=== PATIENT | female | born 1980 | race African-American/Black ===

== ENCOUNTER → 2020-08-05 | Outpatient (CLI) | payer BC ==
[2020-08-05] VITALS (13 sets, daily range): BP systolic 110–130; BP diastolic 69–81; PULSE 86–106
[~2020-08-05] VITALS: Ht 170.2 cm; Wt 94.5 kg
[~2020-08-05] MED LIST: ACETAMINOPHEN W1 TA6 PO; EC NAPROSYN500 MG PO; FORT1000TA PO; GLUCOPHAGE1000 MG PO; HUMALOG100 U/ML SC; IMITREX 25MG TA25 MG PO; INHALER; JARDIANCE10 PO; LANTUS100 U/ML SC; LEVEMIR FLEX100 U/ML SQ; LEVEMIR FLEXPEN SC; MOTRIN 600600 MG/TAB PO; NOVOLOG FLEX100 U/ML SC; NOVOLOG FLEX100 U/ML SQ; PERCOCET 325 MG1 TA2 PO; PHENERGAN 25 TA25 MG PO; PRENATAL 1 VITA1 TAB PO; TOPAMAX25 MG PO; TOPAMAX50 MG PO; VICTOZA6 MG/ML SC; WELLBUTRIN SR150 M1 PO; ZITHROMAX Z PA250 MG PO; ZOLOFT 100MG100 MG PO
[2020-08-05 09:46] LABS: INR 1.3 (0.8-3.0); PROTHROMBIN TIME 14.7 SECONDS (9.7-12.8)
--- NOTE | 2020-08-05 10:20 | NUR ---
Dr Alan informed of PT/INR, states is ok to proceed.
--- NOTE | 2020-08-05 10:36 | NUR ---
pt to ct per wheelchair. Pt positioned in supine position, monitors applied.
--- NOTE | 2020-08-05 10:53 | NUR ---
Specimen obtained and placed in formalin by Dr Alan. Specimen labeled.
--- NOTE | 2020-08-05 10:54 | NUR ---
gel foam slurry placed in liver by Dr Alan.
--- NOTE | 2020-08-05 11:08 | NUR ---
Dr Alan notified of pts PT/INR. states it is ok.
== END ==
LOC: COL.RAD 09:14
PROVIDERS: Internal Medicine Gastroenterology
DX: R94.5 Abnormal results of liver function studies (principal); E11.9 Type 2 diabetes mellitus without complications

== ENCOUNTER 2020-09-23 12:00 | Inpatient (IN) | payer BC ==
[2020-09-23] VITALS (289 sets, daily range): BP systolic 104–119; BP diastolic 58–68; PULSE 100–109; TEMP 97.8–99.6; O2SAT 76–100
[~2020-09-23] VITALS: Ht 167.6 cm; Wt 103.2 kg
[2020-09-23 12:54] LABS: BASO % 0.2 % (0.0-2.0); EOS # 0.1 (0.0-0.7); EOS % 0.9 % (0-4.0); GRAN # 4.4 (1.4-6.5); LYMPH # 2.8 (1.2-3.4); LYMPH % 34.1 % (20.0-51.0); MEAN CELL VOLUME 75 fl (80.0-100.0); MEAN CORPUSCULAR HGB CONC 31 g/dl (33.0-37.0); MEAN PLATELET VOLUME 10.8 fl (7.4-10.4); MONO # 0.8 (0.1-0.6); MONO % 10.4 % (1.7-9.3); PLATELET COUNT 252 K/mm3 (130-400); RED BLOOD COUNT 2.28 M/mm3 (4.10-5.30); REDCELL DISTRIBUTION WIDTH-CV 23.7 % (11.5-14.5)
[2020-09-23 12:55] LABS: INR 1.4 (0.8-3.0); PROTHROMBIN TIME 15.8 SECONDS (9.7-12.8)
[2020-09-23 12:58] LABS: MEAN CORPUSCULAR HEMOGLOBIN 23 pg (27.0-31.0)
[2020-09-23 12:59] LABS: ALBUMIN 2.5 gm/dL (3.5-5.0); BILIRUBIN,TOTAL 2.3 mg/dL (0.0-1.0); CALCIUM 7.5 mg/dL (8.4-10.2); CREATININE, serum 0.57 (0.52-1.25); HEMATOCRIT 17.1 % (37.0-47.0); HEMOGLOBIN 5.3 g/dl (12.5-16.0); POTASSIUM 3.8 mmol/L (3.4-5.0); TOTAL PROTEIN 7.1 gm/dL (6.4-8.2)
--- NOTE | 2020-09-23 19:27 | NUR ---
Report given to KARLI Rangel
[2020-09-23 21:56] LABS: HEMATOCRIT 21.1 % (37.0-47.0); HEMOGLOBIN 6.6 g/dl (12.5-16.0)
--- NOTE | 2020-09-23 22:03 | NUR ---
SILVIA Mercado notified of critical Hgb/Hct
[2020-09-24] VITALS (419 sets, daily range): BP systolic 103–138; BP diastolic 51–85; PULSE 82–108; TEMP 97.9–100; O2SAT 62–100
[2020-09-24 03:16] LABS: HEMATOCRIT 22.3 % (37.0-47.0)
--- NOTE | 2020-09-24 07:15 | NUR ---
RECEIVED REPORT FROM KARLI DE LA FUENTE. PT SLEEPING. VSS. CALL LIGHT WITHIN REACH.
[2020-09-24 08:05] LABS: ALBUMIN 2.1 gm/dL (3.5-5.0); BILIRUBIN,TOTAL 2.9 mg/dL (0.0-1.0); CALCIUM 6.9 mg/dL (8.4-10.2); CHOLESTEROL RISK RATIO 9.8; CREATININE, serum 0.64 (0.52-1.25); MAGNESIUM 1.7 mg/dL (1.6-2.3); POTASSIUM 4.1 mmol/L (3.4-5.0); TOTAL PROTEIN 6.1 gm/dL (6.4-8.2)
--- NOTE | 2020-09-24 08:10 | NUR ---
DR ROBERTSON AT BEDSIDE FOR ASSESSMENT. DISCUSSED WITH PT ABOUT DOING BEDSIDE SCOPING TODAY. PHYSICIAN STATES DO NOT GIVE BOWEL PREP. PHYSICIAN STATES WILL LET RN KNOW AFTER SPEAKING TO ENDO AND ANESTHESIA ABOUT TIME FOR SCOPES. PT MADE AWARE OF POC AND NPO UNTIL AFTER PROCEDURE. VERBALIZED UNDERSTANDING.
[2020-09-24 08:15] LABS: PROTHROMBIN TIME 15.5 SECONDS (9.7-12.8)
[2020-09-24 08:16] LABS: INR 1.4 (0.8-3.0)
[2020-09-24 08:32] LABS: BASO % 0.2 % (0.0-2.0); EOS # 0.1 (0.0-0.7); GRAN # 3.3 (1.4-6.5); GRAN % 53.4 % (42.2-75.2); LYMPH # 2.1 (1.2-3.4); LYMPH % 33.2 % (20.0-51.0); MEAN CORPUSCULAR HGB CONC 32 g/dl (33.0-37.0); MEAN PLATELET VOLUME 10.3 fl (7.4-10.4); MONO # 0.7 (0.1-0.6); MONO % 11.9 % (1.7-9.3); PLATELET COUNT 166 K/mm3 (130-400); RED BLOOD COUNT 2.74 M/mm3 (4.10-5.30); REDCELL DISTRIBUTION WIDTH-CV 21.1 % (11.5-14.5)
[2020-09-24 08:41] LABS: HEMATOCRIT 21.8 % (37.0-47.0); HEMOGLOBIN 6.9 g/dl (12.5-16.0); MEAN CELL VOLUME 80 fl (80.0-100.0); MEAN CORPUSCULAR HEMOGLOBIN 25 pg (27.0-31.0)
[2020-09-24 09:37] LABS: COLLECTION METHOD CLEAN CATCH
[2020-09-24 09:45] LABS: MUCOUS Present /lpf; PH 6 (5-8); SQUAMOUS EPITHELIAL 0-2 /hpf; URINE APPEARANCE Clear; URINE BACTERIA None Seen /hpf; URINE BILIRUBIN Negative (NEGATIVE); URINE BLOOD Negative (NEGATIVE); URINE COLOR Yellow; URINE GLUCOSE Negative (NEGATIVE); URINE KETONE Negative (NEGATIVE); URINE LEUKOCYTE ESTERASE Negative (NEGATIVE); URINE NITRATE Negative (NEGATIVE); URINE PROTEIN(semi-quant) Negative (NEGATIVE); URINE RBC 0-2 /hpf; URINE UROBILINOGEN >=4.0 mg/dL (NEGATIVE)
--- NOTE | 2020-09-24 09:48 | NUR ---
The patient is positive for COVID. SW contacted the patient to discuss discharge plan. The patient lives in [place] with her [id number] daughter. She states that her father, Kameron (ph#[phone]), is staying with her daughter while she is here. She reports independence with ADLs and does not have any DME. The patient's PCP is Dr. Barbara Ty and she receives her medications from [facility]. She reports no difficulties obtaining her meds. The patient does not have a DPOA-HC completed. She states that she is not and only have one child, which is [id number]. The patient's next of kin is her parents: Kameron and Bella. Bella lives in [place]. The patient plans to return home upon discharge. SW to follow as needed.
--- NOTE | 2020-09-24 14:02 | NUR ---
BEDSIDE EGD STARTED BY DR ROBERTSON, ANESTHESIA, AND 2 ENDO RNs. ENDED AT 1402. PT TOLERATED WELL. PT IS FULLY AWAKE NOW AND REQUESTING SOMETHING TO EAT. DR ROBERTSON STATES PT CAN HAVE CLEAR LIQUIDS AND IF TOLERATES OK CAN ADVANCE TO AHA DIET. JELLO AND ICE WATER PROVIDED TO PT AND UPDATED ON POC, VERBALIZED UNDERSTANDING.
--- NOTE | 2020-09-24 15:04 | NUR ---
SPOKE TO DR ZAVALA ABOUT WEGD, PHYSICIAN READS DR ROBERTSON NOTES. DR ZAVALA STATES WILL KEEP PT IMCU STATUS FOR ONE MORE NIGHT FOR CLOSER OBSERVATION. NEW ORDERS RECEIVED. PHYSICIAN STATES AGREES TO GET H&H REDRAW 2 HOURS AFTER 4TH PRBC IS FINISHED.
--- NOTE | 2020-09-24 16:25 | NUR ---
SPOKE TO DR ZAVALA AGAIN ABOUT CT AND PT'S STATUS. NEW ORDERS RECEIVED.
--- NOTE | 2020-09-24 17:34 | NUR ---
ATTEMPED TO EARL ROBERTSON OF CT RESULTS, LM TO CALL RN BACK.
--- NOTE | 2020-09-24 17:36 | NUR ---
ATTEMPTED TO CALL CT RESULTS TO DR ZAVALA. NO ANSWER.
--- NOTE | 2020-09-24 17:58 | NUR ---
ATTEMPTED TO CALL REPORT TO MEDICAL FLOORFOR PT TRANSFER TO 304. PT UPDATED ON POC, VERBALIZED UNDERSTANDING.
--- NOTE | 2020-09-24 18:10 | NUR ---
CORDINATED WITH JUAN RAMON, HIDE CLEANER ON MEDICAL FOR TRANSFER OF PT RIGHT AFTER SHIFT CHANGE. DIRECT LINE GIVEN TO HAND SCUDDER TO OBTAIN REPORT.
--- NOTE | 2020-09-24 18:40 | NUR ---
NOTIFIED DR ROBERTSON OF CT RESULTS AND PT TO TRANSFER TO 304. NO NEW ORDERS.
[2020-09-24 18:41] LABS: HEMATOCRIT 26.3 % (37.0-47.0); HEMOGLOBIN 8.4 g/dl (12.5-16.0)
--- NOTE | 2020-09-24 19:10 | NUR ---
REPORT CALLED TO KARLI BUI ON MEDICAL. PT TO TRANSFER VIA ON RA TO 304. ALL PERSONAL BELONGINGS SENT WITH PT. PT ON TELEMETRY.
[2020-09-25 04:36] VITALS: BP 104/54; PULSE 84; TEMP 98.2
--- NOTE | 2020-09-25 07:09 | NUR ---
Report received from KARLI Chavez. Pt resting in bed, reports nausea and abdominal cramping. Will bring pt tylenol and zofran. Continuing to monitor.
[2020-09-25 07:12] LABS: BASO % 0.3 % (0.0-2.0); EOS # 0.1 (0.0-0.7); EOS % 1.2 % (0-4.0); GRAN # 3.7 (1.4-6.5); GRAN % 60.9 % (42.2-75.2); LYMPH # 1.7 (1.2-3.4); LYMPH % 28.6 % (20.0-51.0); MEAN CELL VOLUME 82 fl (80.0-100.0); MEAN CORPUSCULAR HGB CONC 32 g/dl (33.0-37.0); MEAN PLATELET VOLUME 10.2 fl (7.4-10.4); MONO # 0.5 (0.1-0.6); MONO % 8.7 % (1.7-9.3); PLATELET COUNT 171 K/mm3 (130-400); RED BLOOD COUNT 3.14 M/mm3 (4.10-5.30); REDCELL DISTRIBUTION WIDTH-CV 21.5 % (11.5-14.5)
[2020-09-25 07:27] LABS: HEMATOCRIT 25.6 % (37.0-47.0); HEMOGLOBIN 8.1 g/dl (12.5-16.0); MEAN CORPUSCULAR HEMOGLOBIN 26 pg (27.0-31.0)
[2020-09-25 07:28] VITALS: BP 113/70; PULSE 81; TEMP 98.1
[2020-09-25 07:34] LABS: ALBUMIN 2.4 gm/dL (3.5-5.0); BILIRUBIN,TOTAL 2.8 mg/dL (0.0-1.0); CALCIUM 6.9 mg/dL (8.4-10.2); CREATININE, serum 0.66 (0.52-1.25); POTASSIUM 3.4 mmol/L (3.4-5.0); TOTAL PROTEIN 6.6 gm/dL (6.4-8.2)
--- NOTE | 2020-09-25 07:40 | NUR ---
Shift assessment complete. Reports abdominal cramping w/ pain 02/27 and nausea. Tylenol and zofran administered per orders. Reports no BMs since prior to hospitalization, believes last BM was Monday 2 in AM. Continues to feel as though she needs to have BM but is unable to do so. States the pain "is like a band across my abdomen that radiates upwards." Heart RRR. Lungs CTA. Denies other needs. Call light in reach.
[2020-09-25 12:11] VITALS: BP 106/63; PULSE 87; TEMP 98.1
[2020-09-25] MEDS ORDERED: PROTONIX 40MG T40 MG PO (12:38)
[2020-09-25] MEDS ORDERED: CARAFATE 1GM1 G PO (12:39)
[2020-09-25 13:28] LABS: HEMATOCRIT 26.3 % (37.0-47.0); HEMOGLOBIN 8.3 g/dl (12.5-16.0)
--- NOTE | 2020-09-25 14:33 | NUR ---
Discharge teaching discussed with pt and all questions answered. Discharge paperwork and all belongings with pt. INTs to right forearm and left AC discontinued w/o complications. Pt awaiting ride at this time.
--- NOTE | 2020-09-25 14:52 | NUR ---
Escorted pt down to ED entrance. Witnessed pt get into car with family member.
== END 2020-09-25 14:53 | disposition home or self-care (01) | DRG 377 ==
LOC: COL.ER 12:00 → ICU 13:16 → PEDS 09-24 20:43
PROVIDERS: Family Medicine; Hospitalist; ADMIT Internal Medicine
PROC: 0DB68ZX Excision of Stomach, Via Natural or Artificial Opening Endoscopic, Diagnostic (ICD-10-PCS; principal; 2020-09-23)
DX: K29.71 Gastritis, unspecified, with bleeding (principal); U07.1 COVID-19; D62 Acute posthemorrhagic anemia; K76.6 Portal hypertension; R00.0 Tachycardia, unspecified; E11.9 Type 2 diabetes mellitus without complications; F32.9 Major depressive disorder, single episode, unspecified; F41.9 Anxiety disorder, unspecified; K74.60 Unspecified cirrhosis of liver; R91.1 Solitary pulmonary nodule; Z79.84 Long term (current) use of oral hypoglycemic drugs; Z90.49 Acquired absence of other specified parts of digestive tract
CPT/HCPCS: 99223-AI; 99232-AI; 99239; C9113; J0696; J1815; J2354; J2405; J2704; J3010; J7030; J7050; J7120; P9016; Q9967

== ENCOUNTER → 2020-10-12 | Outpatient (CLI) | payer BC ==
[~2020-10-12] MED LIST changes: +CARAFATE 1GM1 G PO; +PROTONIX 40MG T40 MG PO
[2020-10-12 11:51] LABS: ALBUMIN 2.6 gm/dL (3.5-5.0); BILIRUBIN,TOTAL 2.8 mg/dL (0.0-1.0); CALCIUM 7.9 mg/dL (8.4-10.2); CREATININE, serum 0.85 (0.52-1.25); POTASSIUM 3.6 mmol/L (3.4-5.0); TOTAL PROTEIN 7.9 gm/dL (6.4-8.2)
== END ==
LOC: COL.LAB 10:44
PROVIDERS: Physician Assistant
DX: K74.60 Unspecified cirrhosis of liver (principal)

== ENCOUNTER → 2020-10-16 | Outpatient (CLI) | payer BC ==
[2020-10-16 09:51] LABS: ALBUMIN 2.7 gm/dL (3.5-5.0); BILIRUBIN,TOTAL 2.9 mg/dL (0.0-1.0); CALCIUM 7.9 mg/dL (8.4-10.2); CREATININE, serum 0.78 (0.52-1.25); POTASSIUM 3.6 mmol/L (3.4-5.0)
== END ==
LOC: COL.LAB 09:09
PROVIDERS: Physician Assistant
DX: K74.60 Unspecified cirrhosis of liver (principal); R94.5 Abnormal results of liver function studies; R74.8 Abnormal levels of other serum enzymes; R60.9 Edema, unspecified

== ENCOUNTER 2020-10-22 16:39 | Emergency (ER) | payer BC ==
[~2020-10-22] VITALS: Ht 167.6 cm; Wt 89.1 kg
[2020-10-22 17:18] LABS: BASO % 0.2 % (0.0-2.0); EOS # 0.1 (0.0-0.7); EOS % 1.1 % (0-4.0); GRAN # 3.3 (1.4-6.5); GRAN % 57.5 % (42.2-75.2); HEMATOCRIT 26.8 % (37.0-47.0); HEMOGLOBIN 8.8 g/dl (12.5-16.0); LYMPH # 1.6 (1.2-3.4); LYMPH % 28.4 % (20.0-51.0); MEAN CELL VOLUME 81 fl (80.0-100.0); MEAN CORPUSCULAR HEMOGLOBIN 27 pg (27.0-31.0); MEAN CORPUSCULAR HGB CONC 33 g/dl (33.0-37.0); MEAN PLATELET VOLUME 11.1 fl (7.4-10.4); MONO # 0.7 (0.1-0.6); MONO % 12.4 % (1.7-9.3); PLATELET COUNT 141 K/mm3 (130-400); RED BLOOD COUNT 3.31 M/mm3 (4.10-5.30); REDCELL DISTRIBUTION WIDTH-CV 20.3 % (11.5-14.5)
[2020-10-22 17:27] VITALS: TEMP 98.4
[2020-10-22 17:27] LABS: ALBUMIN 3.1 gm/dL (3.5-5.0); CALCIUM 8.2 mg/dL (8.4-10.2); CREATININE, serum 0.86 (0.52-1.25); POTASSIUM 3.3 mmol/L (3.4-5.0); TOTAL PROTEIN 8.7 gm/dL (6.4-8.2)
[2020-10-22 19:25] LABS: COLLECTION METHOD CLEAN CATCH
[2020-10-22 19:33] LABS: PH 7 (5-8); SQUAMOUS EPITHELIAL 0-2 /hpf; URINE APPEARANCE Clear; URINE BACTERIA None Seen /hpf; URINE BILIRUBIN Negative (NEGATIVE); URINE BLOOD Negative (NEGATIVE); URINE COLOR Yellow; URINE GLUCOSE 3+ (NEGATIVE); URINE KETONE Negative (NEGATIVE); URINE LEUKOCYTE ESTERASE Negative (NEGATIVE); URINE NITRATE Negative (NEGATIVE); URINE PROTEIN(semi-quant) Negative (NEGATIVE); URINE RBC 0-2 /hpf; URINE UROBILINOGEN >=4.0 mg/dL (NEGATIVE)
[2020-10-22 19:54] VITALS: BP 139/81; PULSE 99
== END 2020-10-22 20:00 | disposition home or self-care (01) ==
LOC: COL.ER 16:39
PROVIDERS: Nurse Practitioner
DX: R94.5 Abnormal results of liver function studies (principal); E11.65 Type 2 diabetes mellitus with hyperglycemia; E87.1 Hypo-osmolality and hyponatremia; E87.6 Hypokalemia; Z86.16 Personal history of COVID-19; Z90.49 Acquired absence of other specified parts of digestive tract; Z88.0 Allergy status to penicillin; Z88.2 Allergy status to sulfonamides; Z79.4 Long term (current) use of insulin
CPT/HCPCS: J1815; J7030

== ENCOUNTER → 2020-11-13 | Outpatient (CLI) | payer BC | LOC: COL.VAS 07:42 | DX: M79.604 Pain in right leg (principal); M79.605 Pain in left leg; R60.0 Localized edema ==

== ENCOUNTER 2021-05-20 11:01 | Emergency (ER) | payer BC ==
[~2021-05-20] VITALS: Ht 167.6 cm; Wt 83.2 kg
[2021-05-20 12:55] LABS: BASO % 0.3 % (0.0-2.0); EOS % 1.1 % (0-4.0); GRAN # 1.9 (1.4-6.5); GRAN % 51.1 % (42.2-75.2); LYMPH # 1.3 (1.2-3.4); LYMPH % 35.6 % (20.0-51.0); MEAN CELL VOLUME 75 fl (80.0-100.0); MEAN CORPUSCULAR HGB CONC 31 g/dl (33.0-37.0); MEAN PLATELET VOLUME 10.4 fl (7.4-10.4); MONO # 0.4 (0.1-0.6); MONO % 11.3 % (1.7-9.3); PLATELET COUNT 139 K/mm3 (130-400); RED BLOOD COUNT 2.76 M/mm3 (4.10-5.30); REDCELL DISTRIBUTION WIDTH-CV 14.8 % (11.5-14.5)
[2021-05-20 12:56] LABS: HEMATOCRIT 20.7 % (37.0-47.0); HEMOGLOBIN 6.4 g/dl (12.5-16.0); MEAN CORPUSCULAR HEMOGLOBIN 23 pg (27.0-31.0)
[2021-05-20 13:14] LABS: ALBUMIN 2.6 gm/dL (3.5-5.0); BILIRUBIN,TOTAL 1.5 mg/dL (0.2-1.2); CALCIUM 8.7 mg/dL (8.4-10.2); CREATININE, serum 1.2 mg/dL (0.57-1.11); POTASSIUM 4.1 mmol/L (3.5-4.5); TOTAL PROTEIN 7.2 gm/dL (6.2-8.1)
[2021-05-20 14:13] VITALS: BP 107/73; PULSE 71; TEMP 97.7
[2021-05-20 14:30] VITALS: BP 112/67; PULSE 72; TEMP 97.8
[2021-05-20 14:45] VITALS: BP 114/69; PULSE 74; TEMP 98
[2021-05-20 15:15] VITALS: BP 107/58; PULSE 78; TEMP 98.1
[2021-05-20 16:15] VITALS: BP 108/63; PULSE 79; TEMP 98
[2021-05-20 16:24] VITALS: BP 108/63; PULSE 79
== END 2021-05-20 16:26 | disposition home or self-care (01) ==
LOC: COL.ER 11:01
PROVIDERS: Personal Emergency Response Attendant
DX: E11.65 Type 2 diabetes mellitus with hyperglycemia (principal); E87.1 Hypo-osmolality and hyponatremia; R94.5 Abnormal results of liver function studies; Z87.19 Personal history of other diseases of the digestive system; Z79.4 Long term (current) use of insulin
CPT/HCPCS: J1815; J7030; P9016

== ENCOUNTER 2021-06-01 14:48 | Emergency (ER) | payer BC ==
[~2021-06-01] VITALS: Ht 167.6 cm; Wt 83.2 kg
[2021-06-01 15:44] LABS: BASO % 0.3 % (0.0-2.0); EOS # 0.1 K/mm3 (0.0-0.7); EOS % 1.7 % (0-4.0); GRAN # 4.5 K/mm3 (1.4-6.5); GRAN % 56.8 % (42.2-75.2); LYMPH # 2.3 K/mm3 (1.2-3.4); MEAN CELL VOLUME 78 fl (80.0-100.0); MEAN CORPUSCULAR HGB CONC 30 g/dl (33.0-37.0); MEAN PLATELET VOLUME 10.1 fl (7.4-10.4); MONO # 0.9 K/mm3 (0.1-0.6); MONO % 11.9 % (1.7-9.3); PLATELET COUNT 147 K/mm3 (130-400); RED BLOOD COUNT 2.87 M/mm3 (4.10-5.30); REDCELL DISTRIBUTION WIDTH-CV 16.3 % (11.5-14.5)
[2021-06-01 15:47] LABS: HEMATOCRIT 22.4 % (37.0-47.0); HEMOGLOBIN 6.7 g/dl (12.5-16.0); MEAN CORPUSCULAR HEMOGLOBIN 23 pg (27.0-31.0)
[2021-06-01 15:49] LABS: INR 1.1 (0.8-3.0); PROTHROMBIN TIME 12.5 SECONDS (9.7-12.8)
[2021-06-01 16:01] LABS: ALBUMIN 2.6 gm/dL (3.5-5.0); BILIRUBIN,TOTAL 1.2 mg/dL (0.2-1.2); CALCIUM 8.8 mg/dL (8.4-10.2); POTASSIUM 3.3 mmol/L (3.5-4.5); TOTAL PROTEIN 7.3 gm/dL (6.2-8.1)
[2021-06-01 17:15] VITALS: BP 105/58; PULSE 80; TEMP 98.2
[2021-06-01 17:30] VITALS: BP 96/58; PULSE 87; TEMP 98.2
[2021-06-01 18:00] VITALS: BP 105/62; PULSE 77; TEMP 97.7
[2021-06-01 19:17] VITALS: BP 112/67; PULSE 78; TEMP 98
[2021-06-01 19:30] VITALS: BP 112/67; PULSE 78
== END 2021-06-01 19:30 | disposition home or self-care (01) ==
LOC: COL.ER 14:48
PROVIDERS: Personal Emergency Response Attendant
DX: D64.9 Anemia, unspecified (principal); E11.65 Type 2 diabetes mellitus with hyperglycemia; E87.1 Hypo-osmolality and hyponatremia; R94.5 Abnormal results of liver function studies; Z87.19 Personal history of other diseases of the digestive system; Z79.4 Long term (current) use of insulin
CPT/HCPCS: P9016

== ENCOUNTER 2021-10-13 17:56 | Observation (INO) | payer SELFPAY ==
[~2021-10-13] VITALS: Ht 167.6 cm; Wt 87.4 kg
[2021-10-13 18:39] LABS: BASO % 0.2 % (0.0-2.0); EOS # 0.1 K/mm3 (0.0-0.7); EOS % 2.5 % (0.0-4.0); GRAN # 2.6 K/mm3 (1.4-6.5); GRAN % 45.6 % (42.2-75.2); LYMPH # 2.1 K/mm3 (1.2-3.4); LYMPH % 37.3 % (20.0-51.0); MEAN CELL VOLUME 67 fl (80.0-100.0); MEAN CORPUSCULAR HGB CONC 31 g/dl (33.0-37.0); MEAN PLATELET VOLUME 10.5 fl (7.4-10.4); MONO # 0.8 K/mm3 (0.1-0.6); MONO % 14.2 % (1.7-9.3); PLATELET COUNT 150 K/mm3 (130-400); REDCELL DISTRIBUTION WIDTH-CV 18.3 % (11.5-14.5)
[2021-10-13 18:41] LABS: HEMATOCRIT 27.4 % (37.0-47.0); HEMOGLOBIN 8.5 g/dl (12.5-16.0); MEAN CORPUSCULAR HEMOGLOBIN 21 pg (27-31)
[2021-10-13 18:42] LABS: COLLECTION METHOD CLEAN CATCH
[2021-10-13 18:58] LABS: ALANINE AMINOTRANSFERASE 12 U/L (0-55); ALKALINE PHOSPHATASE 198 U/L (40-150); ANION GAP 11 mmol/L (7-16); AST,SGOT 30 U/L (5-34); BILIRUBIN,TOTAL 2.4 mg/dL (0.2-1.2); BLOOD UREA NITROGEN 10 mg/dL (7-19); CALCIUM 8.8 mg/dL (8.4-10.2); CARBON DIOXIDE 20 mmol/L (22-29); CHLORIDE 96 mmol/L (98-107); CREATININE, serum 1.58 mg/dL (0.57-1.11); GLUCOSE 395 mg/dL (70-99); LIPASE 25 U/L (8-78); POTASSIUM 4.1 mmol/L (3.5-4.5); SODIUM 127 mmol/L (136-145); TOTAL PROTEIN 7.6 gm/dL (6.2-8.1)
[2021-10-13 19:12] LABS: MUCOUS Present (NOT PRESENT); PH 5 (5-8); URINE APPEARANCE Hazy (CLEAR/HAZY); URINE BACTERIA Rare /hpf (NONE SEEN); URINE BILIRUBIN Negative (NEGATIVE); URINE BLOOD Negative (NEGATIVE); URINE COLOR Yellow (YELLOW); URINE GLUCOSE 3+ (NEGATIVE); URINE KETONE Negative (NEGATIVE); URINE LEUKOCYTE ESTERASE Negative (NEGATIVE); URINE NITRATE Negative (NEGATIVE); URINE PROTEIN(semi-quant) Negative (NEGATIVE); URINE RBC 0-2 /hpf (0-2); URINE UROBILINOGEN Negative (NEGATIVE)
[2021-10-13 19:17] LABS: TSH w REFLEX 1.743 uIU/mL (0.350-4.940)
[2021-10-13 19:18] LABS: TROPONIN-I < 0.010 ng/mL (0.00-0.033)
[2021-10-13 21:18] LABS: INR 1.5 (0.8-3.0)
[2021-10-14] VITALS (7 sets, daily range): BP systolic 97–122; BP diastolic 50–70; PULSE 73–92; TEMP 97.4–98.5
--- NOTE | 2021-10-14 00:02 | NUR ---
Arrived to room 323 via wheelchair from ED.
[2021-10-14] MEDS ORDERED: ULTRAM 50MG TAB50 MG PO (00:17)
[2021-10-14] MEDS ORDERED: NEURONTIN100 MG/CAP PO (00:18)
[2021-10-14] MEDS ORDERED: ALDACTONE50 MG PO (00:20)
[2021-10-14] MEDS ORDERED: LASIX 40MG TABL40 MG PO (00:20)
[2021-10-14] MEDS ORDERED: INSULIN AS100 UNIT/3 SQ (00:21)
[2021-10-14] MEDS ORDERED: ENULOSE10 GM/151 PO (00:22)
[2021-10-14] MEDS ORDERED: CARAFATE 1GM1 G PO (00:23)
[2021-10-14 01:30] LABS: MAGNESIUM 1.8 mg/dL (1.6-2.6); PHOSPHOROUS 3.6 mg/dL (2.3-4.7)
--- NOTE | 2021-10-14 01:30 | NUR ---
Dilaudid given per dr order for bilat lower ext pain rated 10/10-described as constant throbbing.
--- NOTE | 2021-10-14 06:06 | NUR ---
Had an uneventful night. Received dilaudid x1 for bilat lower ext pain. NS@100ml/hr to right forearm 20g infusing without difficulty. Denied shortness of breath. C/O nausea x1 but stated medication was not needed. Tele reports SR. NC WNL. On room air. SCDs bilat. Call light in reach. Will monitor.
[2021-10-14 06:58] LABS: BASO % 0.3 % (0.0-2.0); EOS # 0.1 K/mm3 (0.0-0.7); EOS % 3.8 % (0.0-4.0); GRAN # 1.4 K/mm3 (1.4-6.5); GRAN % 38.6 % (42.2-75.2); LYMPH # 1.6 K/mm3 (1.2-3.4); LYMPH % 43.1 % (20.0-51.0); MEAN CELL VOLUME 67 fl (80.0-100.0); MEAN CORPUSCULAR HGB CONC 31 g/dl (33.0-37.0); MEAN PLATELET VOLUME 11.4 fl (7.4-10.4); MONO # 0.5 K/mm3 (0.1-0.6); MONO % 14.2 % (1.7-9.3); PLATELET COUNT 120 K/mm3 (130-400); RED BLOOD COUNT 3.48 M/mm3 (4.10-5.30); REDCELL DISTRIBUTION WIDTH-CV 18.2 % (11.5-14.5)
[2021-10-14 07:03] LABS: CALCIUM 8.2 mg/dL (8.4-10.2); CREATININE, serum 1.2 mg/dL (0.57-1.11); POTASSIUM 3.8 mmol/L (3.5-4.5)
[2021-10-14 07:04] LABS: HEMATOCRIT 23.4 % (37.0-47.0); HEMOGLOBIN 7.3 g/dl (12.5-16.0); MEAN CORPUSCULAR HEMOGLOBIN 21 pg (27-31)
--- NOTE | 2021-10-14 09:53 | NUR ---
ornamental metal worker helper met with patient to discuss discharge plan. Patient reports that she lives at home with her 8 year old daughter. Patients mother Bella ([phone]) is caring for her child while she is in the hospital. Patient is independent with her activities of daily living and does not utilize any DME to assist with mobility. Patient has no oxygen needs at home. PCP is Jayleen Pandya APRN and she utilizes [facility] for medications. Patient is currently between insurance policies and her new plan starts October 19. She does not currently have a DPOA-HC established. Education provided and patient's parents are her legal NOK. She was at one time, but is legally . Patient is planning on returning home once medically ready. Discharge plan: Home
--- NOTE | 2021-10-14 11:55 | NUR ---
Patient's PCP office faxed paperwork for financial assistance information for their office to the surgical unit for the patient to fill out while here. Paperwork provided to the patient and informed her we would be able to fax it back to PCP office.
--- NOTE | 2021-10-14 13:43 | NUR ---
First visit from the manager emergency. NO needs right now.
--- NOTE | 2021-10-14 18:41 | NUR ---
PT CALLED TO INFORM SHE HAD A BLOODY STOOL. BRIGHT RED BLOOD MIXED WITH STOOL NOTED. UNSURE OF AMOUNT. A HAT WAS PLACED IN TOLIET TO MEASURE ANY OTHER FUTURE MOVEMENTS. PT DENIES LIGHTHEADEDNESS OR NAUSEA AT THIS TIME. PT ALSO STATES SHE HAS A SUDDEN SEVERE HEADACHE PRIMARILY IN HER FOREHEAD. PT STATES SHE HAS A HX OF MIGRAINES BUT HAS NOT HAD ONE "IN A LONG TIME" HOSPITALIST NOTIFIED.
--- NOTE | 2021-10-14 19:15 | NUR ---
Bedside shift report received, assumed care for history card clerk. Assessment complete. A&Ox3. Denies shortness of breath. Still c/o headache-rating pain 9. Received topomax and tylenol at 1900. Instructed to wait a little longer to give medication time to work. Verbalizes understanding. States nausea is a little better compared to earlier. VS are currently stable. Has taken in a small amount of clear liquids. NC WNL. Right forearm 20g with NS@50mls/hr infusing without difficulty. TELE reports SR. Plan of care discussed for this shift to include meds/accuchecks/calling for questions/concerns. Verbalizes understanding/denies needs. Call light in reach. Will monitor.
--- NOTE | 2021-10-14 19:32 | NUR ---
PCT reporting patient is c/o a headache-rating pain 8/10. Received topomax and tylenol at 1900. Will re-evaluate in 30 minutes and contact provider if needed.
--- NOTE | 2021-10-14 20:00 | NUR ---
Resting eyes closed. No s/s of pain noted.
--- NOTE | 2021-10-14 20:45 | NUR ---
Called c/o headache/nausea. Rating pain 9/10 on pain scale. Spoke with hospitalist and new orders received for phenergan. Also states she used the bathroom and there is blood in the hat. Did not have any stool-small dime size spot of bright red blood on tissue in hat.
--- NOTE | 2021-10-14 23:48 | NUR ---
Reports headache is gone after receiving phenergan dose earlier. Denies nausea. Call light in reach. Will monitor.
[2021-10-15 03:33] VITALS: BP 100/51; PULSE 79; TEMP 97.8
[2021-10-15 07:00] LABS: EOS # 0.1 K/mm3 (0.0-0.7); GRAN # 1.4 K/mm3 (1.4-6.5); GRAN % 42.4 % (42.2-75.2); LYMPH # 1.4 K/mm3 (1.2-3.4); LYMPH % 42.1 % (20.0-51.0); MEAN CELL VOLUME 68 fl (80.0-100.0); MEAN CORPUSCULAR HGB CONC 31 g/dl (33.0-37.0); MEAN PLATELET VOLUME 10.2 fl (7.4-10.4); MONO # 0.4 K/mm3 (0.1-0.6); MONO % 12.2 % (1.7-9.3); PLATELET COUNT 130 K/mm3 (130-400); RED BLOOD COUNT 3.57 M/mm3 (4.10-5.30); REDCELL DISTRIBUTION WIDTH-CV 18.2 % (11.5-14.5)
[2021-10-15 07:28] VITALS: BP 110/54; PULSE 102; TEMP 98.2
[2021-10-15 07:31] LABS: HEMATOCRIT 24.3 % (37.0-47.0); HEMOGLOBIN 7.4 g/dl (12.5-16.0); MEAN CORPUSCULAR HEMOGLOBIN 21 pg (27-31)
[2021-10-15 07:32] LABS: ALBUMIN 2.7 gm/dL (3.5-5.0); BILIRUBIN,TOTAL 1.9 mg/dL (0.2-1.2); CALCIUM 8.2 mg/dL (8.4-10.2); CREATININE, serum 1.04 mg/dL (0.57-1.11); POTASSIUM 3.7 mmol/L (3.5-4.5); TOTAL PROTEIN 6.7 gm/dL (6.2-8.1)
[2021-10-15 11:18] VITALS: BP 111/64; PULSE 91; TEMP 98.1
[2021-10-15 15:52] VITALS: BP 102/59; PULSE 78; TEMP 98.1
--- NOTE | 2021-10-15 17:57 | NUR ---
NO BLOODY STOOLS THIS SHIFT, HGB UNCHANGED. PT CONTINUES TO TOLERATED CLEAR LIQUIDS, CT OF ABD DONE THIS SHIFT. PT STILL HAVING CRAMPING ABD PAIN BUT NOT SEVERE YESTERDAY. PT DENIES MIGRAINES THIS SHIFT. UP INDEPENDENT IN ROOM.
--- NOTE | 2021-10-15 18:32 | NUR ---
PT NOW HAVING STRONG HEADACHE, PHENERGRAN ORDER PLACED BY HOSPITALIST D/T MEDICATION HELPING WITH MIGRAINE LAST NIGHT
[2021-10-15 19:22] VITALS: BP 105/68; PULSE 84; TEMP 98.3
--- NOTE | 2021-10-15 21:27 | NUR ---
REPORT RECEIVED FROM DAY SHIFT. ASSUMED CARE. PATIENT AXOX3. PATIENT COMPLAINS OF PAIN IN ABDOMEN AND A HEADACHE RATING 10/10. PATIENT GIVEN PM MEDS ALONG WITH PHENERGAN. PATIENT DENIES ANY SOB. PATIENT RESTING IN BED WITH CALL LIGHT NEAR.
[2021-10-15 23:16] VITALS: BP 95/61; PULSE 80; TEMP 97.8
[2021-10-16 03:06] VITALS: BP 98/58; PULSE 87; TEMP 97.5
[2021-10-16 06:58] LABS: EOS # 0.1 K/mm3 (0.0-0.7); EOS % 3.6 % (0.0-4.0); GRAN # 1.5 K/mm3 (1.4-6.5); GRAN % 43.6 % (42.2-75.2); LYMPH # 1.3 K/mm3 (1.2-3.4); MEAN CELL VOLUME 70 fl (80.0-100.0); MEAN CORPUSCULAR HGB CONC 30 g/dl (33.0-37.0); MEAN PLATELET VOLUME 11.3 fl (7.4-10.4); MONO # 0.5 K/mm3 (0.1-0.6); MONO % 14.8 % (1.7-9.3); PLATELET COUNT 133 K/mm3 (130-400); RED BLOOD COUNT 3.33 M/mm3 (4.10-5.30); REDCELL DISTRIBUTION WIDTH-CV 18.3 % (11.5-14.5)
[2021-10-16 07:12] VITALS: BP 98/58; PULSE 86; TEMP 98.1
[2021-10-16 07:15] LABS: ALBUMIN 2.5 gm/dL (3.5-5.0); BILIRUBIN,TOTAL 1.5 mg/dL (0.2-1.2); CALCIUM 8.2 mg/dL (8.4-10.2); CREATININE, serum 0.96 mg/dL (0.57-1.11); POTASSIUM 3.8 mmol/L (3.5-4.5); TOTAL PROTEIN 6.3 gm/dL (6.2-8.1)
[2021-10-16 07:28] LABS: HEMATOCRIT 23.4 % (37.0-47.0); MEAN CORPUSCULAR HEMOGLOBIN 21 pg (27-31)
[2021-10-16] MEDS ORDERED: MIRALAX PA17 GM/Dose PO (09:12)
[2021-10-16] MEDS ORDERED: DULCOLAX S10 MG/SUPP RC (09:14)
[2021-10-16 11:19] VITALS: BP 104/60; PULSE 89; TEMP 98.5
[2021-10-16] MEDS ORDERED: PROMETHAZINE12.5 M5 PO (11:58)
[2021-10-16] MEDS ORDERED: ZOFRAN ODT4 MG PO (11:58)
--- NOTE | 2021-10-16 13:43 | NUR ---
PT MET CRITERIA FOR DISCHARGE, VSS. PAIN CONTROLLED. PT TOLERATING REGULAR DIET. IV REMOVED WITH OUT DIFFICULTY, CATHETER INTACT. DISCHARGE INSTRUCTIONS REVIEWED,PT VERBALIZED UNDERSTANDING. PT AWARE OF F/U APPTS TO MAKE AND OF PRESCRIPTIONS TO BRINE ROOM LABORER. PT DC TO HOME VIA WHEELCHAIR ACCOMPANIED BY EXCELSIOR PICKER.
[2021-10-16] MEDS ORDERED: FERRO-TIME325 MG PO (14:23)
== END 2021-10-16 14:13 | disposition home or self-care (01) ==
LOC: COL.ER 17:56 → SURG 22:17
PROVIDERS: Emergency Medicine; Nurse Practitioner Family; Physician Assistant; ADMIT Student in an Organized Health Care Education/Training Program
DX: K74.69 Other cirrhosis of liver (principal); K92.1 Melena; D50.9 Iron deficiency anemia, unspecified; N17.9 Acute kidney failure, unspecified; E87.1 Hypo-osmolality and hyponatremia; E87.8 Other disorders of electrolyte and fluid balance, not elsewhere classified; R74.02 Elevation of levels of lactic acid dehydrogenase [LDH]; E11.10 Type 2 diabetes mellitus with ketoacidosis without coma; E11.9 Type 2 diabetes mellitus without complications; R82.81 Pyuria; Z86.16 Personal history of COVID-19; Z87.19 Personal history of other diseases of the digestive system; Z90.49 Acquired absence of other specified parts of digestive tract; Z79.891 Long term (current) use of opiate analgesic; Z79.899 Other long term (current) drug therapy; Z79.4 Long term (current) use of insulin
CPT/HCPCS: 99232-AI; 99233-AI; 99239; C9113; G0378; J1170; J1815; J2405; J2550; J7030; Q9967

== ENCOUNTER 2021-12-17 13:13 | Emergency (ER) | payer BC ==
[~2021-12-17] VITALS: Ht 167.6 cm; Wt 94.5 kg
[~2021-12-17 13:13] MED LIST changes: +ALDACTONE50 MG PO; +DULCOLAX S10 MG/SUPP RC; +ENULOSE10 GM/151 PO; +FERRO-TIME325 MG PO; +INSULIN AS100 UNIT/3 SQ; +LASIX 40MG TABL40 MG PO; +MIRALAX PA17 GM/Dose PO; +NEURONTIN100 MG/CAP PO; +PROMETHAZINE12.5 M5 PO; +ULTRAM 50MG TAB50 MG PO; +ZOFRAN ODT4 MG PO
[2021-12-17 13:55] LABS: BASO % 0.2 % (0.0-2.0); EOS # 0.1 K/mm3 (0.0-0.7); GRAN # 2.2 K/mm3 (1.4-6.5); GRAN % 55.5 % (42.2-75.2); LYMPH # 1.3 K/mm3 (1.2-3.4); LYMPH % 31.2 % (20.0-51.0); MEAN CELL VOLUME 70 fl (80.0-100.0); MEAN CORPUSCULAR HGB CONC 30 g/dl (33.0-37.0); MEAN PLATELET VOLUME 10.5 fl (7.4-10.4); MONO # 0.4 K/mm3 (0.1-0.6); MONO % 10.9 % (1.7-9.3); PLATELET COUNT 139 K/mm3 (130-400); RED BLOOD COUNT 3.16 M/mm3 (4.10-5.30)
[2021-12-17 13:57] LABS: HEMOGLOBIN 6.6 g/dl (12.5-16.0); MEAN CORPUSCULAR HEMOGLOBIN 21 pg (27-31)
[2021-12-17 14:01] LABS: INR 1.3 (0.8-3.0)
[2021-12-17 14:09] LABS: ALBUMIN 2.8 gm/dL (3.5-5.0); BILIRUBIN,TOTAL 1.3 mg/dL (0.2-1.2); CALCIUM 8.2 mg/dL (8.4-10.2); CREATININE, serum 1.08 mg/dL (0.57-1.11); POTASSIUM 3.5 mmol/L (3.5-4.5); TOTAL PROTEIN 7.1 gm/dL (6.2-8.1)
[2021-12-17 14:50] LABS: COLLECTION METHOD CLEAN CATCH
[2021-12-17 15:07] LABS: PH 6 (5-8); SQUAMOUS EPITHELIAL 0-2 /hpf (0-10); URINE APPEARANCE Clear (CLEAR/HAZY); URINE BACTERIA Rare /hpf (NONE SEEN); URINE BILIRUBIN Negative (NEGATIVE); URINE BLOOD Negative (NEGATIVE); URINE COLOR Colorless (YELLOW); URINE GLUCOSE Negative (NEGATIVE); URINE KETONE Negative (NEGATIVE); URINE LEUKOCYTE ESTERASE Negative (NEGATIVE); URINE NITRATE Negative (NEGATIVE); URINE PROTEIN(semi-quant) Negative (NEGATIVE); URINE RBC 0-2 /hpf (0-2); URINE UROBILINOGEN Negative (NEGATIVE)
[2021-12-17 15:11] VITALS: BP 95/52; PULSE 85; TEMP 98.4
[2021-12-17 15:29] VITALS: BP 98/58; PULSE 93; TEMP 98.3
[2021-12-17 16:29] VITALS: BP 103/65; PULSE 81; TEMP 98.3
[2021-12-17 17:24] VITALS: BP 103/66; PULSE 75; TEMP 98.2
[2021-12-17 17:55] VITALS: TEMP 98.2
[2021-12-17 18:13] VITALS: BP 106/69; PULSE 71
== END 2021-12-17 18:15 | disposition home or self-care (01) ==
LOC: COL.ER 13:13
PROVIDERS: Family Medicine
DX: D64.9 Anemia, unspecified (principal); R60.9 Edema, unspecified
CPT/HCPCS: P9016

== ENCOUNTER 2022-04-06 04:51 | Emergency (ER) | payer BC ==
[~2022-04-06] VITALS: Ht 167.6 cm; Wt 89.5 kg
[2022-04-06 04:54] VITALS: BP 104/72; PULSE 95; TEMP 97.6
[2022-04-06 05:34] LABS: BASO % 0.3 % (0.0-2.0); EOS # 0.1 K/mm3 (0.0-0.7); EOS % 1.3 % (0.0-4.0); GRAN # 3.7 K/mm3 (1.4-6.5); GRAN % 62.7 % (42.2-75.2); LYMPH # 1.5 K/mm3 (1.2-3.4); LYMPH % 25.3 % (20.0-51.0); MEAN CELL VOLUME 68 fl (80.0-100.0); MEAN CORPUSCULAR HGB CONC 32 g/dl (33.0-37.0); MEAN PLATELET VOLUME 10.9 fl (7.4-10.4); MONO # 0.6 K/mm3 (0.1-0.6); MONO % 10.1 % (1.7-9.3); PLATELET COUNT 124 K/mm3 (130-400); RED BLOOD COUNT 3.46 M/mm3 (4.10-5.30)
[2022-04-06 05:37] LABS: HEMATOCRIT 23.5 % (37.0-47.0); HEMOGLOBIN 7.4 g/dl (12.5-16.0); MEAN CORPUSCULAR HEMOGLOBIN 21 pg (27-31)
[2022-04-06 05:50] LABS: ALBUMIN 2.7 gm/dL (3.5-5.0); BILIRUBIN,TOTAL 1.3 mg/dL (0.2-1.2); CALCIUM 8.6 mg/dL (8.4-10.2); CREATININE, serum 1.32 mg/dL (0.57-1.11); TOTAL PROTEIN 7.6 gm/dL (6.2-8.1)
[2022-04-06 05:54] LABS: POTASSIUM 2.9 mmol/L (3.5-4.5)
[2022-04-06] MEDS ORDERED: ZAROXOLYN10 MG ×2 (06:03→06:04)
[2022-04-06] MEDS ORDERED: K-DUR20 MEQ PO (06:32)
== END 2022-04-06 07:18 | disposition home or self-care (01) ==
LOC: COL.ER 04:51
PROVIDERS: Emergency Medicine
DX: E11.65 Type 2 diabetes mellitus with hyperglycemia (principal); E87.6 Hypokalemia; M79.671 Pain in right foot; M79.672 Pain in left foot; Z20.822 Contact with and (suspected) exposure to COVID-19
CPT/HCPCS: J2270; J2405; J3480; J7030

== ENCOUNTER 2022-04-07 08:52 | Emergency (ER) | payer BC ==
[2022-04-07] VITALS (8 sets, daily range): BP systolic 87–107; BP diastolic 49–64; PULSE 77–79; TEMP 98.5–98.6
[~2022-04-07] VITALS: Ht 167.6 cm; Wt 89.5 kg
[~2022-04-07 08:52] MED LIST changes: +K-DUR20 MEQ PO; +ZAROXOLYN10 MG
[2022-04-07 09:49] LABS: BASO % 0.2 % (0.0-2.0); EOS # 0.1 K/mm3 (0.0-0.7); EOS % 1.4 % (0.0-4.0); GRAN # 2.4 K/mm3 (1.4-6.5); GRAN % 58.7 % (42.2-75.2); LYMPH # 1.2 K/mm3 (1.2-3.4); LYMPH % 28.9 % (20.0-51.0); MEAN CELL VOLUME 72 fl (80.0-100.0); MEAN CORPUSCULAR HGB CONC 30 g/dl (33.0-37.0); MEAN PLATELET VOLUME 10.3 fl (7.4-10.4); MONO # 0.4 K/mm3 (0.1-0.6); MONO % 10.6 % (1.7-9.3); PLATELET COUNT 105 K/mm3 (130-400); REDCELL DISTRIBUTION WIDTH-CV 17.2 % (11.5-14.5)
[2022-04-07 09:52] LABS: MEAN CORPUSCULAR HEMOGLOBIN 21 pg (27-31)
[2022-04-07 09:53] LABS: HEMOGLOBIN 6.8 g/dl (12.5-16.0)
[2022-04-07 10:16] LABS: ALBUMIN 2.6 gm/dL (3.5-5.0); BILIRUBIN,TOTAL 1.4 mg/dL (0.2-1.2); C-REACTIVE PROTEIN 0.44 mg/dL (0.00-0.50); CALCIUM 8.4 mg/dL (8.4-10.2); CREATININE, serum 1.42 mg/dL (0.57-1.11); POTASSIUM 3.8 mmol/L (3.5-4.5); TOTAL PROTEIN 7.4 gm/dL (6.2-8.1)
[2022-04-07 10:59] LABS: COLLECTION METHOD CLEAN CATCH
[2022-04-07 11:08] LABS: SQUAMOUS EPITHELIAL 0-2 /hpf (0-10); URINE BACTERIA None Seen /hpf (NONE SEEN); URINE RBC None Seen /hpf (0-2)
[2022-04-07 11:09] LABS: URINE APPEARANCE Clear (CLEAR/HAZY); URINE COLOR Yellow (YELLOW); URINE GLUCOSE 1+ (NEGATIVE); URINE PROTEIN(semi-quant) Negative (NEGATIVE)
[2022-04-07 11:10] LABS: URINE BLOOD Negative (NEGATIVE); URINE KETONE Negative (NEGATIVE); URINE NITRATE Negative (NEGATIVE)
== END 2022-04-07 14:12 | disposition home or self-care (01) ==
LOC: COL.ER 08:52
PROVIDERS: Family Medicine
DX: D64.9 Anemia, unspecified (principal); E11.9 Type 2 diabetes mellitus without complications
CPT/HCPCS: J7120; P9016

== ENCOUNTER 2022-06-23 12:44 | Day surgery (SDC) | payer BC ==
[~2022-06-23] VITALS: Ht 167.6 cm; Wt 93.9 kg
[~2022-06-23 12:44] MED LIST changes: +ORTHO NOVUM PO
[2022-06-23] MEDS ORDERED: LYRICA 75MG CAP75 MG PO (15:09)
[2022-06-23] MEDS ORDERED: TRESIBA FL100 UNIT/1 SQ (15:09)
--- NOTE | 2022-06-23 15:30 | NUR ---
1519-BLOOD GLUCOSE WAS 77. PT IS ASYMPTOMATIC. 1525-Braeden CHRISTENSEN CRNA NOTIFIED. ORDERS RECEIVED. WILL CONTINUE TO MONITOR PT.
[2022-06-23 15:33] VITALS: BP 125/82; PULSE 81; TEMP 97.9
[2022-06-23 17:15] VITALS: BP 115/77; PULSE 10; TEMP 97.1
[2022-06-23 17:30] VITALS: BP 141/94; PULSE 106
[2022-06-23 17:45] VITALS: BP 125/79; PULSE 94
--- NOTE | 2022-06-23 18:10 | NUR ---
1715 RETURNS TO ROOM 3 PER CART. AMBULATES TO RECLINER WITH STAND BY ASSIST. SEATED IN RECLINER, LEGS ELEVATED. MONITORS ON, VITAL SIGNS OBTAINED. RESP UNLABORED. DENIES NAUSEA, ABD PAIN, OR DYSPHAGIA 1719 DR. ACUNA HERE TO VISIT WITH PATIENT. 1735 TOLERATES PO JUICE AND MIFFIN WITHOUT NAUSEA. SWALLOWS WITHOUT DIFFICULTY. 1738 FSBS 167 1740 DISCHARGE INSTRUCTIONS REVIEWED. PATIENT VERBALIZES UNDERSTANDING. COPY OF INSTRUCTIONS PROVIDED IN DISCHARGE FOLDER. 1755 PATIENT DRESSES SELF. 1810 DISCHARGED PER WHEELCHAIR. DELAYED FOR 10 MINUTES AWAITNG ARRIVAL OF FATHER. PATIENT SEATED IN PASSENGER SEAT OF FATHER'S VEHICLE.
== END 2022-06-23 18:10 | disposition home or self-care (01) ==
LOC: SDCO 12:44
DX: I85.00 Esophageal varices without bleeding (principal); K31.7 Polyp of stomach and duodenum; D50.0 Iron deficiency anemia secondary to blood loss (chronic); K74.60 Unspecified cirrhosis of liver
CPT/HCPCS: J2704; J7042; J7120

== ENCOUNTER → 2022-09-30 | Outpatient (CLI) | payer BC ==
[~2022-09-30] MED LIST changes: +LYRICA 75MG CAP75 MG PO; +TRESIBA FL100 UNIT/1 SQ
== END ==
LOC: COL.RAD 08:00
DX: R91.1 Solitary pulmonary nodule (principal)
CPT/HCPCS: Q9967

== ENCOUNTER 2022-11-03 17:41 | Inpatient (IN) | payer BC ==
[~2022-11-03] VITALS: Ht 167.6 cm; Wt 104.7 kg
[2022-11-03 18:06] LABS: BASO % 0.2 % (0.0-2.0); EOS # 0.1 K/mm3 (0.0-0.7); GRAN # 2.4 K/mm3 (1.4-6.5); LYMPH # 1.6 K/mm3 (1.2-3.4); LYMPH % 33.3 % (20.0-51.0); MEAN CELL VOLUME 70 fl (80.0-100.0); MEAN CORPUSCULAR HGB CONC 31 g/dl (33.0-37.0); MEAN PLATELET VOLUME 11.3 fl (7.4-10.4); MONO # 0.7 K/mm3 (0.1-0.6); MONO % 15.3 % (1.7-9.3); PLATELET COUNT 125 K/mm3 (130-400); RED BLOOD COUNT 3.52 M/mm3 (4.10-5.30); REDCELL DISTRIBUTION WIDTH-CV 16.5 % (11.5-14.5)
[2022-11-03 18:09] LABS: HEMATOCRIT 24.5 % (37.0-47.0); HEMOGLOBIN 7.7 g/dl (12.5-16.0); MEAN CORPUSCULAR HEMOGLOBIN 22 pg (27-31)
[2022-11-03 18:27] LABS: ALBUMIN 2.6 gm/dL (3.5-5.0); BILIRUBIN,TOTAL 1.3 mg/dL (0.2-1.2); C-REACTIVE PROTEIN 0.55 mg/dL (0.00-0.50); CALCIUM 8.5 mg/dL (8.4-10.2); CREATININE, serum 1.69 mg/dL (0.57-1.11); POTASSIUM 4.8 mmol/L (3.5-4.5); TOTAL PROTEIN 7.5 gm/dL (6.2-8.1)
[2022-11-03 21:24] LABS: BASO % 0.4 % (0.0-2.0); EOS # 0.1 K/mm3 (0.0-0.7); EOS % 1.5 % (0.0-4.0); GRAN # 2.4 K/mm3 (1.4-6.5); GRAN % 50.3 % (42.2-75.2); LYMPH # 1.6 K/mm3 (1.2-3.4); LYMPH % 32.9 % (20.0-51.0); MEAN CELL VOLUME 69 fl (80.0-100.0); MEAN CORPUSCULAR HGB CONC 32 g/dl (33.0-37.0); MONO # 0.7 K/mm3 (0.1-0.6); MONO % 14.9 % (1.7-9.3); PLATELET COUNT 101 K/mm3 (130-400); RED BLOOD COUNT 3.33 M/mm3 (4.10-5.30); REDCELL DISTRIBUTION WIDTH-CV 16.3 % (11.5-14.5)
[2022-11-03 21:25] LABS: HEMATOCRIT 23.1 % (37.0-47.0); HEMOGLOBIN 7.3 g/dl (12.5-16.0); MEAN CORPUSCULAR HEMOGLOBIN 22 pg (27-31)
[2022-11-03] MEDS ORDERED: MAXALT10 MG PO (23:05)
[2022-11-03] MEDS ORDERED: CARAFATE 1GM1 G PO (23:06)
[2022-11-03] MEDS ORDERED: NORCO 325 MG-51 TAB PO (23:06)
[2022-11-03] MEDS ORDERED: NOVOLOG FLEX100 U/ML SQ (23:06)
[2022-11-03] MEDS ORDERED: TOPAMAX50 MG PO (23:08)
[2022-11-03] MEDS ORDERED: ZAROXOLYN10 MG PO (23:08)
[2022-11-03] MEDS ORDERED: PROMETHAZINE12.5 M5 PO (23:08)
[2022-11-03] MEDS ORDERED: ALDACTONE 100M100 MG PO (23:09)
[2022-11-03] MEDS ORDERED: LYRICA 150MG C150 MG PO (23:09)
[2022-11-03] MEDS ORDERED: PAMELOR 25MG25 MG PO (23:09)
[2022-11-03] MEDS ORDERED: TRELEGY ELLIPT1 EACH IH (23:09)
[2022-11-03] MEDS ORDERED: PROTONIX 40MG T40 MG PO (23:10)
[2022-11-03] MEDS ORDERED: TYLENOL 500MG500 MG PO (23:10)
[2022-11-03] MEDS ORDERED: PEPCID 20MG TAB20 MG PO (23:11)
[2022-11-03 23:55] LABS: MAGNESIUM 1.6 mg/dL (1.6-2.6); PHOSPHOROUS 3.8 mg/dL (2.3-4.7)
[2022-11-04] VITALS (1060 sets, daily range): BP systolic 98–131; BP diastolic 55–84; PULSE 90–110; TEMP 97.9–98.7; O2SAT 92–100
[2022-11-04 03:18] LABS: COLLECTION METHOD CLEAN CATCH
[2022-11-04 03:29] LABS: URINE APPEARANCE Clear (CLEAR/HAZY); URINE COLOR Yellow (YELLOW); URINE GLUCOSE 1+ (NEGATIVE); URINE PROTEIN(semi-quant) Negative (NEGATIVE)
[2022-11-04 03:30] LABS: URINE BLOOD Negative (NEGATIVE); URINE KETONE Negative (NEGATIVE); URINE NITRATE Negative (NEGATIVE)
[2022-11-04 03:32] LABS: SQUAMOUS EPITHELIAL 0-2 /hpf (0-10); URINE BACTERIA Rare /hpf (NONE SEEN); URINE RBC 0-2 /hpf (0-2)
--- NOTE | 2022-11-04 03:53 | NUR ---
0015 GOT REPORT FROM KARLI SOLORZANO FROM ED. 0030 PT ARRIVED ON THE UNIT. PT IS DROWSY BUT IS ABLE TO ANSWER SOME QUESTIONS AND FOLLOW COMMANDS. PT HAS EYES CLOSED MOST OF THE TIME BUT WILL OPEN THEM SPONTANOUSLY AT TIMES. PT WAS ABLE TO ANSWER ORIENTED QUESTIONS BUT IT TOOK A COUPLE OF TIMES TO ASK TO GET THE PT TO ANSWER AND PT WOULD ANSWER WITH THE SAME ANSWER FOR THE PREVIOUS QUESTION. NURSE ASKED IF PT NEW WHAT MONTH IS WAS THREE TIMES. PT ANSWERS "2022" AND THEN FINALLY SAID "OCTOBER." NURSE ASKED IF SHE KNEW WHERE SHE WAS AND PT STATES "[place]OB[place]" A COUPLE OF TIMES. NURSE ASKED A DIFFERENT QUESTION THEN WENT BACK TO "DO YOU KNOW WHERE YOU ARE AT?" PT STATED "HOSPITAL." OVERALL PT IS CONFUSED AT TIMES AND WAS NOT ABLE TO ANSWER ALL OF THE ASSESSMENT INTAKE QUESTIONS AND DID NOT KNOW HER HOME MEDS SHE TAKES AT THIS TIME AND WILL LET DAY SHIFT NURSE KNOW. PT WENT TO THE BATHROOM AROUND 0300 AND USED THE BEDSIDE COMMODE AND GOT 800 ML OF URINE OUTPUT. NEED X2 ASSISTANCE WITH GAITBELT TO TRANSFER.
[2022-11-04 05:38] LABS: BASO % 0.5 % (0.0-2.0); EOS # 0.1 K/mm3 (0.0-0.7); EOS % 1.5 % (0.0-4.0); GRAN # 2.1 K/mm3 (1.4-6.5); GRAN % 50.4 % (42.2-75.2); LYMPH # 1.3 K/mm3 (1.2-3.4); LYMPH % 32.1 % (20.0-51.0); MEAN CELL VOLUME 70 fl (80.0-100.0); MEAN CORPUSCULAR HGB CONC 31 g/dl (33.0-37.0); MEAN PLATELET VOLUME 11.4 fl (7.4-10.4); MONO # 0.6 K/mm3 (0.1-0.6); MONO % 15.3 % (1.7-9.3); PLATELET COUNT 103 K/mm3 (130-400); RED BLOOD COUNT 3.49 M/mm3 (4.10-5.30); REDCELL DISTRIBUTION WIDTH-CV 16.5 % (11.5-14.5)
[2022-11-04 05:39] LABS: INR 1.3 (0.8-3.0)
[2022-11-04 05:40] LABS: HEMATOCRIT 24.5 % (37.0-47.0); HEMOGLOBIN 7.6 g/dl (12.5-16.0); MEAN CORPUSCULAR HEMOGLOBIN 22 pg (27-31)
[2022-11-04 05:41] LABS: PARTIAL THROMBOPLASTIN TIME 30.4 SECONDS (26.0-37.0)
[2022-11-04 05:45] LABS: CALCIUM 8.7 mg/dL (8.4-10.2); CREATININE, serum 1.56 mg/dL (0.57-1.11); POTASSIUM 4.7 mmol/L (3.5-4.5)
--- NOTE | 2022-11-04 06:47 | NUR ---
PT HAS BEEN ASLEEP MOST OF THE TIME. PT WILL WAKE UP BRIEFLY WHEN TALKED TO AND WILL START TO DOZE OFF AND WILL NEED STIMULI TO STAY AWAKE. PT WILL FOLLOW COMMANDS. PT HAS NOT HAD A BM YET. PT'S VITALS HAVE BEEN STABLE SINCE SHE HAS BEEN IN THE ICU. WILL GIVE REPORT TO DAY SHIFT NURSE.
--- NOTE | 2022-11-04 09:49 | NUR ---
Heater Furnace met with patient to complete initial intake. Patient is drowsy and was able to answer some questions, but had difficulty keeping her eyes open. Patient stated she lives in [place] with her ten year old daughter, Kishore. Patient advised Kishore is staying with her mother, Bella (#[phone]). Patient stated her primary care physician is not local, but SW could not understand what name patient was saying. SW followed up with patient's mother, Bella who confirmed patient lives in [place] with her daughter, Kishore. Bella advised they had a late night so she is letting Kishore rest right now. Bella stated patient's PCP is in [place], but cannot remember the name. Per Bella, patient is independent with ADLS. Patient is not currently employed. Bella advised she thought patient may have DPOA-HC but is not sure. Bella advised patient is and only has one daughter, Kishore. Bella and patient's father, Kameron are legal next of kin.
[2022-11-05 01:19] VITALS: BP 115/65; PULSE 104; TEMP 98.7
--- NOTE | 2022-11-05 03:51 | NUR ---
Recieved pt transfer from ICU. Assessment performed. Pt is alert and oriented but drowsy. She responds to verbal commands and follows directions. She is no longer drowsy and remains alert and oriented. She is complaining of pain bilaterally in her feet 05/30. Only the left foot has been x-rayed and there are no orders for pain meds. I called and spoke with LUIZ Wise. Orders were placed for right foot x-ray and oxycodone 5 mg. She reports that the medication has not helped and her pain remains persistent 05/30. She has been tachycardic throughout the night. SHe is on telemetry, room air and neuro checks Q2. She was previously non-weight bearing for the left foot but Billie would like her only partial-weight bearing on her right foot as well. She will be using the bed saldivar to reduce pressure on the feet. Bed in lowest position and bed alarm on. Call light within reach.
[2022-11-05 04:32] VITALS: BP 115/68; PULSE 97; TEMP 98.5
--- NOTE | 2022-11-05 06:53 | NUR ---
Pt had a right foot x-ray done and LUIZ Wise states that there is a visible fracture in the right foot. Ortho will need to consult again in the AM. She should be only partial weight bearing on the right foot at this point and we have encouraged use of the bed saldivar. She has complained of 10/10 pain bilaterally in her feet. Meds administered as ordered and eventually rested in the leasing director. She is still alert and oriented and is no longer drowsy. She is oriented to her own abililty and has call light within reach.
[2022-11-05 07:18] VITALS: BP 109/72; PULSE 86; TEMP 98.1
--- NOTE | 2022-11-05 09:21 | NUR ---
Assessment complete. A/O x4. Converstation appropriate. Neuro checks WNL. NS infusing to RAC without s/s complications. Tele SR. Rates left foot pain 05/30. Roxicodone administered. Educated patient about NWB to left foot for transfers to chair and BSC- pt verbalizes understanding. Spoke with Physical Thearpy and they are going to try to locate a post op shoe for patient.
--- NOTE | 2022-11-05 11:00 | NUR ---
BLE elevated with pillows, ice placed to left foot. Pt continues to rate pain 10/10. Dr. Burgos made aware and states he would like to hold off on adding in additional pain medication, at this time, due to the patient's cirrhosis.
[2022-11-05 11:16] VITALS: BP 113/71; PULSE 88; TEMP 98.2
--- NOTE | 2022-11-05 12:09 | NUR ---
Gold Prospector rounds: Patient was seated on side of bed eating breakfast on bedside table. Patient declined Gold Prospector visit when offered.
--- NOTE | 2022-11-05 16:55 | NUR ---
Informed Dr. Burgos made aware of patient's continued c/o 10/10 pain to left and right feet. New order rec'd. Roxicodone 10mg administered for c/o pain.Dr. Lee notified of x-ray results of the right foot. New order rec'd. Contacted Patient Transition Specialist and requested post op shoe from ER.
[2022-11-05 17:00] VITALS: BP 110/65; PULSE 105; TEMP 98.6
[2022-11-05 19:54] VITALS: BP 128/71; PULSE 109; TEMP 97.9
[2022-11-06] VITALS (7 sets, daily range): BP systolic 96–128; BP diastolic 58–69; PULSE 83–108; TEMP 97.8–99.4
--- NOTE | 2022-11-06 02:18 | NUR ---
Pt has pulled out two IVs while alert and oriented. I am unsure as to why. I spoke with LUIZ Bosch. She is okay to leave the IV out for now and re-evaluate in the morning. IV fluids being held at this time.
--- NOTE | 2022-11-06 03:06 | NUR ---
Shift assessment performed. During assessment I asked her to state her full name and . SHe stated her full name and and then repeated her again. She responded the same way when I asked about today's date. She has had no other responses like this throughout the night and she converses appropriately. Neurochecks wnl. She continues to complain of 10/10 pain bilaterally in her feet. Roxycodone administered as ordered. She is partial weight bearing and is tolerating that fine. SCDs on throughout night. Bed on lowest position and call light is within reach.
[2022-11-06 06:42] LABS: BASO % 0.2 % (0.0-2.0); EOS # 0.1 K/mm3 (0.0-0.7); EOS % 2.3 % (0.0-4.0); GRAN # 2.4 K/mm3 (1.4-6.5); GRAN % 50.4 % (42.2-75.2); LYMPH # 1.5 K/mm3 (1.2-3.4); LYMPH % 31.9 % (20.0-51.0); MEAN CELL VOLUME 69 fl (80.0-100.0); MEAN CORPUSCULAR HGB CONC 32 g/dl (33.0-37.0); MEAN PLATELET VOLUME 11.5 fl (7.4-10.4); MONO # 0.7 K/mm3 (0.1-0.6); PLATELET COUNT 84 K/mm3 (130-400); RED BLOOD COUNT 3.36 M/mm3 (4.10-5.30); REDCELL DISTRIBUTION WIDTH-CV 16.3 % (11.5-14.5)
[2022-11-06 06:43] LABS: HEMATOCRIT 23.1 % (37.0-47.0); HEMOGLOBIN 7.3 g/dl (12.5-16.0); MEAN CORPUSCULAR HEMOGLOBIN 22 pg (27-31)
[2022-11-06 07:03] LABS: CALCIUM 8.4 mg/dL (8.4-10.2); CREATININE, serum 1.14 mg/dL (0.57-1.11); POTASSIUM 4.6 mmol/L (3.5-4.5)
--- NOTE | 2022-11-06 07:20 | NUR ---
Pt seemed to be more drowsy than expected. When helping her wash her hands after the commode, she would pause, slowly close her eyes and her head would begin to drop. I would speak to her and she would awaken. This happened several times when trying to get her back to bed and while conversing with her. Her ammonia has not be rechecked since 11/04. I called and spoke with Dr. Burgos. He gave orders to recheck the ammonia level. He also decreased the Roxycodone from 10 mg to 5 mg Q6H. He would like to avoid giving this as much as possible. Orders were read back to him and updated in the pt's chart.
--- NOTE | 2022-11-06 08:00 | NUR ---
Assessment complete. A/O x4. Answers questions appropriately. Rates pain 7/10 on pain scale to bilateral feet. Denies nausea. No IV access at this time- pt pulled IV site out during noc shift. Will speak with hospitalist to see if needs restarted since patient has had to have a new IV started 3 times since yesterday afternoon. Tele SR.
--- NOTE | 2022-11-06 09:59 | NUR ---
Pt up in chair with assistance from P.T. Feet elevated. Wears shoes bilaterally when OOB. Rates pain 03/30 at this time. Pt last rec'd Roxicodone at 0525 and not due until 1125.
--- NOTE | 2022-11-06 18:16 | NUR ---
Roxicodone administered at 1300 for c/o 9-10/10 pain to feet. Agreeable and voices understanding to pain medication regimen. Pt rested in bed all day after sitting up in the chair this morning for a couple house. FWAT wtih flat shoes on bilaterally- reports improvement with OOB activity, using walker. Pt expresses her wishes to go home as soon as possible. IV restarted to RAC. IVF d/c'd per MD order. Taking fluids well without c/o nausea.
--- NOTE | 2022-11-07 01:49 | NUR ---
NURSING SHIFT ASSESSMENT COMPLETED. THE PATIENT WAS CALM AND REPORTED PAIN 10/10 BILATERAL FEET. PRN PAIN MEDICATION TO BE PROVIDED. THE PATIENT DENIED OTHER NEEDS AT THIS TIME. EVENING MEDICATIONS AND PLAN OF CARE TAUGHT. WILL MONITOR. BED ALARM ON, BED IN LOW POSITION, CALL LIGHT WITHIN REACH.
[2022-11-07 04:23] VITALS: BP 123/76; PULSE 89; TEMP 98.5
[2022-11-07 07:33] LABS: CALCIUM 8.3 mg/dL (8.4-10.2); CREATININE, serum 1.15 mg/dL (0.57-1.11); POTASSIUM 4.1 mmol/L (3.5-4.5)
[2022-11-07 07:57] VITALS: BP 122/75; PULSE 85; TEMP 98.2
[2022-11-07 08:07] LABS: BASO % 0.2 % (0.0-2.0); EOS # 0.1 K/mm3 (0.0-0.7); EOS % 1.6 % (0.0-4.0); GRAN # 2.2 K/mm3 (1.4-6.5); GRAN % 49.9 % (42.2-75.2); LYMPH # 1.4 K/mm3 (1.2-3.4); LYMPH % 33.3 % (20.0-51.0); MEAN CELL VOLUME 71 fl (80.0-100.0); MEAN CORPUSCULAR HGB CONC 30 g/dl (33.0-37.0); MEAN PLATELET VOLUME 12.2 fl (7.4-10.4); MONO # 0.6 K/mm3 (0.1-0.6); MONO % 14.8 % (1.7-9.3); PLATELET COUNT 84 K/mm3 (130-400); RED BLOOD COUNT 3.33 M/mm3 (4.10-5.30); REDCELL DISTRIBUTION WIDTH-CV 16.5 % (11.5-14.5)
[2022-11-07 08:09] LABS: HEMATOCRIT 23.5 % (37.0-47.0); MEAN CORPUSCULAR HEMOGLOBIN 21 pg (27-31)
--- NOTE | 2022-11-07 08:40 | NUR ---
Pt awake and laying in bed. Morning medications administered per eMAR. Shift assessment completed. Pt responds with eyes closed. Will maintain conversation, but continues to keep eyes closed. Telemetry remains on. INT in R AC patent, no edema or redness, eva wrap in place. Call light within reach.
[2022-11-07 11:05] VITALS: BP 114/67; PULSE 92; TEMP 98.9
--- NOTE | 2022-11-07 13:50 | NUR ---
The PA notified GINI that the patient's mother would like to speak to social work. GINI met with the patient and her mother, Bella. The patient was sleeping. Bella confirms the plan for the patient to return home. She lives out of state, but will be staying with the patient to help out. Bella states that OT informed her that they would recommend a transport chair, FWW, bedside commode, and transfer bench. SW informed her how insurance does not pay for the bedside commode and transfer bench, but where she could obtain them. Bella is interested in trying to see if insurance will pay for the FWW and transport chair. She is agreeable with getting them through [facility]. GINI contacted and faxed the FWW and transport chair order to Bolivar at [facility]. The patient is to tentatively discharge tomorrow. *Discharge plan: home with family support*
[2022-11-07 15:13] VITALS: BP 103/56; PULSE 96; PULSE 996; TEMP 98.4
[2022-11-07 20:30] VITALS: BP 114/62; PULSE 106; TEMP 98.1
[2022-11-07 23:54] VITALS: BP 108/69; PULSE 114; TEMP 99.2
[2022-11-08 04:20] VITALS: BP 99/57; PULSE 104; TEMP 99.1
[2022-11-08 07:14] VITALS: BP 103/59; PULSE 69; TEMP 98.6
--- NOTE | 2022-11-08 08:00 | NUR ---
Pt laying in bed. Shift assessment completed. VSS. Telemetry remains on. INT in R forearm patent, no edema or redness. No further request at this time. Call light within reach. BELA Baker nursing scheduler providing all pt care today.
[2022-11-08] MEDS ORDERED: XIFAXAN550 MG PO (10:20)
[2022-11-08] MEDS ORDERED: DOXYCYCLINE 10100 MG PO (10:20)
[2022-11-08 10:29] LABS: BASO % 0.4 % (0.0-2.0); EOS # 0.1 K/mm3 (0.0-0.7); EOS % 1.8 % (0.0-4.0); GRAN # 2.6 K/mm3 (1.4-6.5); GRAN % 52.8 % (42.2-75.2); LYMPH # 1.5 K/mm3 (1.2-3.4); LYMPH % 30.3 % (20.0-51.0); MEAN CELL VOLUME 69 fl (80.0-100.0); MEAN CORPUSCULAR HGB CONC 31 g/dl (33.0-37.0); MEAN PLATELET VOLUME 11.9 fl (7.4-10.4); MONO # 0.7 K/mm3 (0.1-0.6); MONO % 14.3 % (1.7-9.3); PLATELET COUNT 92 K/mm3 (130-400); RED BLOOD COUNT 3.62 M/mm3 (4.10-5.30); REDCELL DISTRIBUTION WIDTH-CV 16.7 % (11.5-14.5)
[2022-11-08 10:30] LABS: HEMATOCRIT 24.9 % (37.0-47.0); HEMOGLOBIN 7.8 g/dl (12.5-16.0); MEAN CORPUSCULAR HEMOGLOBIN 22 pg (27-31)
[2022-11-08] MEDS ORDERED: LACTULOSE10 GM/153 PO (10:32)
[2022-11-08] MEDS ORDERED: LEVEMIR FLEX100 U/ML SQ (10:36)
[2022-11-08] MEDS ORDERED: NOVOLOG FLEX100 U/ML SQ (10:36)
[2022-11-08] MEDS ORDERED: ROXICODONE 55 MG/TAB PO (10:41)
[2022-11-08 10:46] LABS: ALBUMIN 2.6 gm/dL (3.5-5.0); BILIRUBIN,TOTAL 1.8 mg/dL (0.2-1.2); CALCIUM 8.6 mg/dL (8.4-10.2); CREATININE, serum 1.13 mg/dL (0.57-1.11); POTASSIUM 3.9 mmol/L (3.5-4.5); TOTAL PROTEIN 7.3 gm/dL (6.2-8.1)
--- NOTE | 2022-11-08 11:09 | NUR ---
Assessment completed at 0730. patient was alert, oriented, and resting in bed. telemetry was on, HR regular. Edema noted to bilateral feet, paient reports pain 5/10 to bilateral feet, pain med last given at 0430. INT site to right forearm was intact and no redness noted.
[2022-11-08 11:22] VITALS: BP 115/82; PULSE 102; TEMP 98.3
--- NOTE | 2022-11-08 11:38 | NUR ---
The clinical team is ready to discharge the patient today. GINI notified Bolivar at [facility]. Bolivar states that they will deliver the FWW and transport chair to the patient's room this morning. GINI met with the patient and her mother, Bella, to update. Bella inquired about home health. GINI educated the patient and Bella about home health and it's benefits. GINI provided them with Medicare.gov's list of home health agencies that serve [place]. The patient would like to talk to her PCP first about home health. She was not interested in getting home health set up yet at this time. The patient is to discharge back home with family support today, 11/08. No additional needs at this time.
--- NOTE | 2022-11-08 13:24 | NUR ---
Pt discharge instructions given at this time. All questions answered.
[2022-11-08 16:09] VITALS: BP 107/65; PULSE 95; TEMP 98.1
--- NOTE | 2022-11-08 17:26 | NUR ---
INT in R forearm discontinued.
== END 2022-11-08 19:10 | disposition home or self-care (01) | DRG 433 ==
LOC: COL.ER 17:41 → MEDICAL 23:29 → ICU 23:29 → MEDICAL 11-04 11:00
PROVIDERS: Family Medicine; Nurse Practitioner Family; Physician Assistant; ADMIT Student in an Organized Health Care Education/Training Program
DX: K74.69 Other cirrhosis of liver (principal); E87.1 Hypo-osmolality and hyponatremia; N17.9 Acute kidney failure, unspecified; K76.82 Hepatic encephalopathy; J32.0 Chronic maxillary sinusitis; J32.1 Chronic frontal sinusitis; J32.2 Chronic ethmoidal sinusitis; E87.5 Hyperkalemia; D69.6 Thrombocytopenia, unspecified; E11.65 Type 2 diabetes mellitus with hyperglycemia; D50.9 Iron deficiency anemia, unspecified; S92.325A Nondisplaced fracture of second metatarsal bone, left foot, initial encounter for closed fracture; S92.345A Nondisplaced fracture of fourth metatarsal bone, left foot, initial encounter for closed fracture; S92.415A Nondisplaced fracture of proximal phalanx of left great toe, initial encounter for closed fracture; E11.40 Type 2 diabetes mellitus with diabetic neuropathy, unspecified; Z23 Encounter for immunization; Z90.89 Acquired absence of other organs; Z90.49 Acquired absence of other specified parts of digestive tract; Z88.2 Allergy status to sulfonamides; Z88.0 Allergy status to penicillin; Z79.4 Long term (current) use of insulin
CPT/HCPCS: J1815; J7030

== ENCOUNTER 2023-06-05 09:02 | Emergency (ER) | payer BC ==
[~2023-06-05] VITALS: Ht 167.6 cm; Wt 90.9 kg
[~2023-06-05 09:02] MED LIST changes: +ALDACTONE 100M100 MG PO; +DOXYCYCLINE 10100 MG PO; +LACTULOSE10 GM/153 PO; +LYRICA 150MG C150 MG PO; +MAXALT10 MG PO; +NORCO 325 MG-51 TAB PO; +PAMELOR 25MG25 MG PO; +PEPCID 20MG TAB20 MG PO; +ROXICODONE 55 MG/TAB PO; +TRELEGY ELLIPT1 EACH IH; +TYLENOL 500MG500 MG PO; +XIFAXAN550 MG PO; +ZAROXOLYN10 MG PO
[2023-06-05 09:08] VITALS: TEMP 98
[2023-06-05 10:24] LABS: BASO % 0.6 % (0.0-2.0); EOS # 0.1 K/mm3 (0.0-0.7); GRAN # 1.6 K/mm3 (1.4-6.5); GRAN % 46.4 % (42.2-75.2); LYMPH # 1.2 K/mm3 (1.2-3.4); LYMPH % 35.9 % (20.0-51.0); MEAN CELL VOLUME 84 fl (80.0-100.0); MEAN CORPUSCULAR HEMOGLOBIN 27 pg (27-31); MEAN CORPUSCULAR HGB CONC 33 g/dl (33.0-37.0); MEAN PLATELET VOLUME 12.2 fl (7.4-10.4); MONO # 0.5 K/mm3 (0.1-0.6); MONO % 14.8 % (1.7-9.3); PLATELET COUNT 91 K/mm3 (130-400); RED BLOOD COUNT 4.01 M/mm3 (4.10-5.30); REDCELL DISTRIBUTION WIDTH-CV 16.3 % (11.5-14.5)
[2023-06-05 10:25] LABS: HEMATOCRIT 33.8 % (37.0-47.0)
[2023-06-05 10:44] LABS: ALBUMIN 2.9 gm/dL (3.5-5.0); BILIRUBIN,TOTAL 3.5 mg/dL (0.2-1.2); C-REACTIVE PROTEIN 0.87 mg/dL (0.00-0.50); CALCIUM 9.1 mg/dL (8.4-10.2); CREATININE, serum 1.49 mg/dL (0.57-1.11); TOTAL PROTEIN 7.6 gm/dL (6.2-8.1)
[2023-06-05 11:02] LABS: INR 1.2 (0.8-3.0); PROTHROMBIN TIME 13.1 SECONDS (9.7-12.8)
[2023-06-05] MEDS ORDERED: OXY IR5 MG PO (11:14)
[2023-06-05 11:31] LABS: COLLECTION METHOD CLEAN CATCH
[2023-06-05 11:51] LABS: URINE APPEARANCE Clear (CLEAR/HAZY); URINE COLOR Yellow (YELLOW); URINE GLUCOSE Negative (NEGATIVE); URINE KETONE TRACE (NEGATIVE); URINE PROTEIN(semi-quant) Negative (NEGATIVE)
[2023-06-05 11:52] LABS: SQUAMOUS EPITHELIAL 0-2 /hpf (0-10); URINE BLOOD Negative (NEGATIVE); URINE NITRATE Negative (NEGATIVE); URINE RBC None Seen /hpf (0-2)
[2023-06-05 12:26] VITALS: BP 126/72; PULSE 84
== END 2023-06-05 12:26 | disposition home or self-care (01) ==
LOC: COL.ER 09:02
PROVIDERS: Family Medicine
DX: R53.81 Other malaise (principal); R60.0 Localized edema; Z20.822 Contact with and (suspected) exposure to COVID-19
CPT/HCPCS: J7030